=== PATIENT | female | born 1965 ===

== ENCOUNTER 2023-07-11 20:53 | Emergency (ER) | payer SELFPAY ==
[~2023-07-11] VITALS: Ht 162.6 cm; Wt 109.0 kg
[2023-07-11 20:59] VITALS: BP 173/104; O2SAT 99
[2023-07-11] MEDS ORDERED: AMOX1TAB16 MT (21:46)
[2023-07-11] MEDS ORDERED: TETANUS, DIPHTHERIA, PERTUSSIS VAC/PF 0.5ML (>10YR OLD) IM ONE (22:00)
[2023-07-11 22:09] VITALS: PULSE 78; RESP 18; TEMP 98.3
== END 2023-07-11 22:10 | disposition home or self-care (01) ==
LOC: ER 20:53
DX: S91.352A Open bite, left foot, initial encounter (principal); W54.0XXA Bitten by dog, initial encounter; Y93.89 Activity, other specified; Y92.89 Other specified places as the place of occurrence of the external cause; Y99.8 Other external cause status
CPT/HCPCS: 90715; 90471; 99283; Z7610